=== PATIENT | female | born 2000 | race Two or more races ===

== ENCOUNTER 2024-05-25 20:58 | Emergency (ER) | payer OTHER ==
[~2024-05-25] VITALS: Ht 167.6 cm; Wt 81.6 kg
[2024-05-25] MEDS ORDERED: LIDOCAINE HCL 1% 10ML VIAL ONE (23:24)
[2024-05-25] MEDS ORDERED: TETANUS & DIPHTHERIA TOX,ADULT 0.5 ML VIAL IM ONE (23:45)
[2024-05-25] MEDS ORDERED: TETANUS DIPHTHERIA TOX. ADSOR 5 ML VIAL IM ONE (23:47)
== END 2024-05-26 01:26 | disposition home or self-care (01) ==
LOC: ER 20:59
DX: S01.511A Laceration without foreign body of lip, initial encounter (principal); X58.XXXA Exposure to other specified factors, initial encounter; Y93.89 Activity, other specified; Y92.813 Airplane as the place of occurrence of the external cause; Y99.8 Other external cause status

== ENCOUNTER → 2024-06-07 | Emergency (ER) | payer OTHER ==
[~2024-06-07] VITALS: Ht 167.6 cm; Wt 77.1 kg
== END | disposition home or self-care (01) ==
LOC: ER 11:08
DX: Z48.02 Encounter for removal of sutures (principal)